=== PATIENT | male | born 1955 | race Caucasian/White ===

== ENCOUNTER 2020-03-28 07:11 | Observation (INO) | payer OTHER, SELFPAY ==
[2020-03-28] VITALS (17 sets, daily range): BP systolic 136–207; BP diastolic 84–119; PULSE 61–78; RESP 11–20; TEMP 36.4–36.7; O2SAT 94–99; BMI 22.1; BMI 22.8; BMI 22.2; BMI 22.3
[2020-03-28 07:25] LABS: Bedside Glucose 173 mg/dL (70-110)
--- NOTE | 2020-03-28 07:29 | EKG12_ITS ---
Test Reason : Blood Pressure : / mmHG Vent. Rate : 069 BPM Atrial Rate : 069 BPM P-R Int : 144 ms QRS Dur : 088 ms QT Int : 414 ms P-R-T Axes : 060 018 048 degrees QTc Int : 443 ms Normal sinus rhythm Normal ECG Confirmed by RAMIRO MENDIETA ([id number]), metropolitan editor VANNESSA RANGEL ([id number]) on 03/30/2020 11:27:03 AM Referred By: CAL Confirmed By:RAMIRO MENDIETA
--- NOTE | 2020-03-28 07:29 | CT_ITS ---
STUDY: CT BRAIN WITHOUT CONTRAST REASON FOR EXAM: Male, 64 years old. RT SIDED WEAKNESS, NUMBNESS TO RT LEG/HAND RADIATION DOSAGE (If Supplied By Facility): CTDIvol = ( 44.99 ) mGy, DLP = ( 762.36 ) mGycm TECHNIQUE: Transaxial CT imaging of the brain was performed without administration of intravenous contrast material. Individualized dose optimization techniques were used for this CT. COMPARISON: No relevant priors. FINDINGS: Normal soft tissue structures. Normal calvarium. There is mild cerebral atrophy with widening of the extra-axial spaces and ventricular dilatation. Normal white matter tracts of the cerebral hemispheres. Normal basal ganglia and thalami. Normal brainstem. Normal cerebellum. There is no intracranial hemorrhage. There are no findings of an acute ischemic infarction. Normal visualized paranasal sinuses. CT/Brain/Head without Contrast IMPRESSION: Normal unenhanced CT scan of the brain. Electronically Signed: Carmine Duran, at 8:13 EDT , Service support ,
--- NOTE | 2020-03-28 07:29 | RAD_ITS ---
STUDY: X-RAY CHEST REASON FOR EXAM: Male, 64 years old. WEAKNESS, RIGHT SIDE NUMBNESS X 1 DAY. TECHNIQUE: Single AP portable view of the chest. COMPARISON: None. FINDINGS: EKG electrodes are seen. There are minimal increased markings in the left midlung suggestive of linear atelectasis and/or scarring. There is no demonstrated pleural abnormality. Normal size heart. Normal mediastinum and sumit. Normal visualized pulmonary arteries. There is atherosclerotic tortuosity of the aortic arch and descending thoracic aorta. There are degenerative changes of the visualized thoracic spine. Normal visualized ribs, clavicles, and shoulders. There is no demonstrated abnormality of the visualized soft tissue structures of the upper abdomen. RAD/Chest 1 View IMPRESSION: Minimal increased linear markings in the left midlung suggestive of linear atelectasis and/or linear scarring. Electronically Signed: Carmine Duran, at 8:14 EDT , Service support ,
--- NOTE | 2020-03-28 07:29 | ED.VIS.GEN ---
History of Present Illness Chief Complaint: Neuro S/Sx Informant: Patient, Family Onset: Yesterday Narrative: 64-year-old male presenting with right-sided weakness. States that he woke up feeling fine at 6:30 AM yesterday. At about 830 he started to notice numbness in his right leg. He states that he did have difficulty ambulating secondary to weakness in the leg. This lasted all day. He did not seek medical attention. This morning when he woke up he noticed that he had right arm weakness and paresthesia. Has history of hypertension which is diet controlled. He states he has no other medical problems. He is never had TIA or stroke before. Patient does admit to recent travel to [place]. He does not have any COVID?19 symptoms such as cough, shortness of breath, fever, myalgias, loss of taste or smell. He called his PCP and was sent to the emergency room for evaluation. Past Medical History - Allergies and Home Meds Allergies/Adverse Reactions: Allergies No Known Allergies Allergy (Verified 03/28/20 07:19) Primary Care Physician: Fadi Monzon MD [STAFF PHYSICIAN] - Past Medical History: - - HYPERTENSION Lives: Spouse/ Significant Other Smoking Status: Never smoker Alcohol: None Drugs: None Review of Systems General: Denies: Chills, Fever, Sweats Eyes: Denies: Visual changes - bilaterally, Diplopia ENT: Denies: Rhinorrhea, Sore throat Cardiovascular: Denies: Chest pain, Palpitations Respiratory: Denies: Dyspnea, Cough, Dyspnea on exertion Gastrointestinal: Denies: Abdominal pain, Nausea, Vomiting, Diarrhea, Melena, Hematochezia Genitourinary: Denies: Dysuria, Hematuria, Frequency Musculoskeletal: Denies: Back pain, Extremity Pain Skin: Denies: Rash, Wounds Neurological: Reports: Weakness, Parasthesia, Numbness - Paresthesias and numbness in the right lower extremity and right upper extremity. Patient also notes that in the right side by his hip., - - No slurred speech, dizziness.. Denies: Headache Hematologic: Denies: Easy bruising, Easy bleeding Physical Exam Vital Signs/Narrative: Vital Signs Temp Pulse Resp BP Pulse Ox 03/28/20 07:12 97.6 F L 76 16 182/119 H 96 Inital Vital Signs reviewed: Yes General: Well nourished, Well developed, No Acute Distress Head: Normocephalic, Atraumatic Eyes: Perrl ENT: Moist mucous membranes, No rhinorrhea Cardiovascular: Regular rate, Regular rhythm Respiratory: No distress, CTA bilaterally Abdomen: Soft Extremities: Nontender, No edema Skin: Normal color, No rash Neurological: Alert, Oriented x3, Cranial nerves II-XII grossly intact, - - NIH = 3 for slight numbness in right arm and leg, slight drift right arm and right leg without hitting bed.. Negative for: Inattentive Psychological: Normal affect Diagnostic/Tx/Re-eval Clinical Impression(s) from Imaging Studies Brain CT 03/28/20 07:29 IMPRESSION: Normal unenhanced CT scan of the brain. Electronically Signed: Carmine Duran at 8:13 EDT , Service support , Chest X-Ray 03/28/20 07:29 IMPRESSION: Minimal increased linear markings in the left midlung suggestive of linear atelectasis and/or linear scarring. Electronically Signed: Carmine Duran, at 8:14 EDT , Service support , Brain MRI 03/28/20 08:49 IMPRESSION: Subacute infarct of the left thalamus. Electronically Signed: Angel Doll MD at 10:10 EDT Tel , Service support , ADDENDUM: 03/28/20 1024 IMPRESSION: Subacute infarct of the left thalamus. N.B. : The above information has been verbally conveyed by Angel Doll MD to SIMI ryan, on 03/28/2020 10:17:13 (ET). Electronically Signed: Angel Doll MD at 10:10 EDT Tel , Service support , Laboratory Data 03/28/20 03/28/20 03/28/20 07:19 07:20 07:20 WBC 5.8 RBC 5.53 Hgb 16.1 Hct 47.9 MCV 86.6 MCH 29.1 MCHC 33.6 RDW Std Deviation 42.7 RDW Coeff of Blaise 13.9 Plt Count 203 MPV 10.4 Immature Gran % (Auto) 0.200 Neut % (Auto) 68.9 Lymph % (Auto) 21.4 [place] % (Auto) 6.4 Eos % (Auto) 2.1 Baso % (Auto) 1.0 Absolute Neuts (auto) 4.0 Absolute Lymphs (auto) 1.23 Nucleated RBC % 0 PT 12.7 INR 1.0 APTT 25.5 Sodium Potassium Chloride Carbon Dioxide Anion Gap BUN Creatinine Estim Creat Clear Calc Est GFR (MDRD) Af Amer Est GFR (MDRD) Non-Af BUN/Creatinine Ratio Glucose Calcium Troponin I COVID-19 ([facility]) POC Glucose 173 H 03/28/20 03/28/20 07:20 07:40 WBC RBC Hgb Hct MCV MCH MCHC RDW Std Deviation RDW Coeff of Blaise Plt Count MPV Immature Gran % (Auto) Neut % (Auto) Lymph % (Auto) [place] % (Auto) Eos % (Auto) Baso % (Auto) Absolute Neuts (auto) Absolute Lymphs (auto) Nucleated RBC % PT INR APTT Sodium 137 Potassium 3.7 Chloride 105 Carbon Dioxide 28.0 Anion Gap 4 L BUN 16 Creatinine 1.57 H Estim Creat Clear Calc 47.82 Est GFR (MDRD) Af Amer 58 L Est GFR (MDRD) Non-Af 48 L BUN/Creatinine Ratio 10.2 Glucose 174 H Calcium 8.9 Troponin I < 0.015 COVID-19 ([facility]) Negative POC Glucose - Rhythm Strip Rhythm Strip: Sinus Rhythm Rate: 69 - EKG Initial EKG Interpretation: Sinus Rhythm, No Acute Injury Pattern Prior: Unchanged - With exception of previous EKG was sinus bradycardia at 53 bpm. - Medical Decision Making Seen and evaluated on arrival for strokelike symptoms. His NIH was 3. Patient had CT brain which was negative. Patient's lab work was fairly unremarkable with exception of some renal disease of unknown etiology. States he has uncontrolled hypertension and tries to control this with his diet this is possibly a source. His blood pressure was slightly elevated today and I did give him 10 mg of hydralazine. EKG is normal sinus rhythm without signs of ischemia. Chest x-ray is negative. COVID?19 swab is negative. Discussed with hospitalist who recommended getting MRI from the emergency room which showed a left thalamic infarct. At this point he was amenable to admit the patient for further work-up. Patient was given bedside swallow and aspirin in the ED. Impression: 1. Left thalamic infarct 2. Possible acute kidney injury ED Disposition - Plan for ED Patient: Referrals: Fadi Monzon MD [STAFF PHYSICIAN] -
[2020-03-28 07:38] LABS: Absolute Lymphocyte Count 1.23 X10^3/uL (0.83-4.51); Basophil# 0.06 X10^3/uL; Eosinophil# 0.12 X10^3/uL; Eosinophils% 2.1 % (0-5); Hematocrit 47.9 % (40-54); Hemoglobin 16.1 g/dL (13.0-16.5); Lymphocyte # 1.23 X10^3/ul (4.0); Lymphocyte % 21.4 % (19-41); Mean Corp Hgb Conc 33.6 g/dL (32-36); Mean Corpuscular Hgb 29.1 pg (27.0-32.0); Mean Corpuscular Volume 86.6 fL (80-94); Mean Platelet Vol. 10.4 fl (6.2-12.0); Monocyte# 0.37 X10^3/uL; Monocyte% 6.4 % (0-10); NRBC Flagged by Analyzer 0 % (0-5); Neutrophil # 3.96 X10^3/uL (2.7-7.7); Neutrophil % 68.9 % (47-70); Platelet Count 203 K/mm3 (150-450); RBC Distribution Width CV 13.9 % (11.6-14.6); RBC Distribution Width SD 42.7 fl (35.1-43.9); Red Blood Count 5.53 M/mm3 (4.6-6.2); White Blood Count 5.8 K/mm3 (4.4-11.0)
[2020-03-28 07:42] LABS: Partial Thromboplast Time 25.5 Seconds (24.1-36.2); Prothrombin Time (Protime)PT. 12.7 SECONDS (11.7-14.9)
[2020-03-28 07:57] LABS: Anion Gap 4 (5-15); BUN 16 mg/dL (7-18); BUN/Creat Ratio 10.2 RATIO (10-20); Calcium,Total 8.9 mg/dL (8.5-10.1); Chloride 105 mmol/L (98-107); Creatinine, Serum 1.57 mg/dL (0.70-1.30); EST Glomerular Filtration Rate 48 mL/min (>60); Est Glom Filt Rate - Afr Amer 58 mL/min (>60); Estimated Creatinine Clearance 47.82 ml/min; Glucose 174 mg/dL (74-106); Potassium 3.7 mmol/L (3.5-5.1); Sodium Level 137 mmol/L (136-145)
[2020-03-28] MEDS: hydrALAZINE 20 MG/ML Vial 10 MG IV (08:13)
[2020-03-28] MEDS: Aspirin 81 MG TAB.CHEW 324 MG PO (08:36)
--- NOTE | 2020-03-28 08:49 | MRI_ITS ---
We are attempting to reach an attending provider to discuss findings. An addendum with communication details will be sent when the communication is complete. STUDY: MRI BRAIN WITHOUT CONTRAST REASON FOR EXAM: Male, 64 years old. RIGHT weakness began yesterday when waking TECHNIQUE: Standardized multiplanar fat and water weighted pulse sequences were obtained. COMPARISON: CT 03-28-20 FINDINGS: Normal size of the ventricles and extra-axial spaces for the patient''s age. Normal white matter tracts of the supratentorial brain. There is hyperintensity of the left thalamus which demonstrates restricted diffusion consistent with a subacute infarct. Normal T2* images of the brain without demonstrated susceptibility artifact. There is no demonstrated hemosiderin stain. Normal bilateral basal ganglia. Normal thalami. There is no extra-axial fluid accumulation. Normal flow voids within the major intracranial circulation suggesting patency by spin echo criteria. Normal sella turcica, pituitary gland, infundibular stalk, optic chiasm and hypothalamus. Normal tectal plate and pineal gland. Normal midbrain, eddie and medulla. Normal cerebellum. Normal basal cisterns. Normal bilateral temporal bones. Normal bilateral internal auditory canals. No demonstrated orbital abnormality, within the constraints of a routine brain study. Normal visualized paranasal sinuses. Normal calvarium and skull base. Normal visualized soft tissue structures. Normal visualized upper cervical spine. MRI/Brain without Contrast IMPRESSION: Subacute infarct of the left thalamus. Electronically Signed: Angel Doll MD at 10:10 EDT Tel , Service support ,
[2020-03-28 08:55] LABS: Probe Check PASS; Specimen Processing Control PASS
--- NOTE | 2020-03-28 12:29 | CT_ITS ---
STUDY: CTA HEAD AND NECK WITH CONTRAST REASON FOR EXAM: Male, 64 years old. NEURO DEFICIT, ACUTE, STROKE SUSPECTED. RIGHT SIDE WEAK, RIGHT SIDE NUMBNESS. RADIATION DOSAGE (If Supplied By Facility): CTDIvol = ( 18.98 ) mGy, DLP = ( 653.12 ) mGycm TECHNIQUE: CT angiography was performed with a multi-detector CT scanner. Data acquisition was obtained from the skull base through the vertex following intravenous administration of IV 100mL [id number]-370. MIP images were reconstructed from the axial data set. Post-processing of the angiographic images was performed, with multiplanar reformation and 3D reconstruction. Individualized dose optimization techniques were used for this CT. COMPARISON: No relevant priors. FINDINGS: Normal bilateral petrous carotid arteries. Normal right cavernous carotid artery with a normal supraclinoid bifurcation. Normal left cavernous carotid artery with a normal supraclinoid bifurcation. Normal right A1 segments of the anterior cerebral artery. Normal left A1 segments of the anterior cerebral artery. Normal intact anterior communicating artery (ACOM). Normal bilateral A2 segments of the anterior cerebral arteries. Normal right M1 and M2 segments of the middle cerebral arteries, with a normal M1 bifurcation. Normal left M1 and M2 segments of the middle cerebral arteries, with a normal M1 bifurcation. Normal right posterior communicating artery (PCOM). Normal left posterior communicating artery (PCOM). Normal bilateral vertebral arteries. Normal basilar artery with a normal basilar bifurcation. The visualized bilateral superior cerebellar (SCA) arteries are normal. Normal bilateral P1, P2 and visualized P3 segments of the posterior cerebral arteries. There is no demonstrated aneurysm of the little traverse of Ceron. There is no demonstrated abnormality of the visualized brain. AORTIC ARCH: Normal visualized aortic arch. Normal origins of the brachiocephalic, left common carotid, and left subclavian arteries. RIGHT CAROTID ARTERIES: Normal right common carotid artery (CCA). Normal right common carotid bulb. Normal origin of the right internal carotid (ICA) artery without a hemodynamically significant stenosis. Normal visualized cervical portion of the right internal carotid artery. Normal origin of the right external carotid artery (ECA). LEFT CAROTID ARTERIES: Normal left common carotid artery (CCA). Normal left common carotid bulb. There is mild atherosclerotic plaque formation of the origin of the left internal carotid artery with less than 50% cross sectional diameter stenosis. Normal visualized cervical portion of the left internal carotid artery. Normal origin of the left external carotid artery (ECA). VERTEBRAL ARTERIES: Normal bilateral vertebral arteries. CT/CTA Head AND Neck W/ Contrast IMPRESSION: Minimal plaque at the origin of the left internal carotid artery. Electronically Signed: Carmine Duran, at 14:06 EDT , Service support ,
--- NOTE | 2020-03-28 12:29 | ECHOD_ITS ---
Reason For Study: TIA/CVA Procedure This was a 2D Doppler, Color Flow transthoracic echocardiogram. Exam performed portable in patient room. Left Ventricle Normal LV size. Apical false tendon noted. Left ventricular systolic function is normal. The estimated ejection fraction is 65 %. No evidence for diastolic dysfunction. No regional wall motion abnormalities noted. Right Ventricle Normal RV size. Normal systolic function. Atria Normal left atrium. Normal right atrium. No doppler evidence for ASD. Bubble contrast study negative for right to left interatrial shunt. Mitral Valve There is no mitral annular calcification. Normal mitral valve. Trivial mitral valve insufficiency. Tricuspid Valve Normal tricuspid valve. Trivial tricuspid valve insufficiency. Aortic Valve Trisinus/trileaflet aortic valve. Normal aortic valve. Pulmonic Valve The pulmonic valve is not well visualized. Trivial pulmonic valve insufficiency. Great Vessels Normal sized aortic root. Pericardium/Pleural No pericardial effusion. Medication Performed a rapid injection of agitated mix of 9 cc saline and 1cc air to assess for atrial septal defect. MMode/2D Measurements & Calculations LVIDd: 4.5 cm IVSd: 1.0 cm Ao root diam: 3.2 cm LVIDs: 3.0 cm LVPWd: 0.96 cm RVDd: 3.4 cm FS: 34.2 % LAV(MOD-bp): 42.5 ml LVAd ap4: 26.5 cm2 SV(MOD-sp4): 43.8 ml LAV(MOD-bp) Indexed: 23.2 ml/m2 EDV(MOD-sp4): 73.1 ml LAV(MOD-sp2): 42.1 ml EDV(sp4-el): 73.0 ml LAV(MOD-sp4): 40.6 ml LVAs ap4: 14.3 cm2 ESV(MOD-sp4): 29.3 ml ESV(sp4-el): 28.3 ml EF(MOD-sp4): 59.9 % EF(sp4-el): 61.2 % SV(sp4-el): 44.7 ml LA A4 area: 15.9 cm2 LA dimension(2D): 3.9 cm RA A4 area: 16.9 cm2 Doppler Measurements & Calculations MV E max rafa: 84.8 cm/sec Lat Peak E' Rafa: 13.5 cm/sec Med Peak E' Rafa: 10.5 cm/sec MV A max rafa: 73.4 cm/sec E/E' lat: 6.3 E/E' med: 8.1 MV E/A: 1.2 Ao V2 max: 176.5 cm/sec LV V1 max: 126.3 cm/sec PA V2 max: 136.0 cm/sec Ao max P.5 mmHg LV V1 max P.4 mmHg Interpretation Summary Left ventricular systolic function is normal. The estimated ejection fraction is 65 %. Apical false tendon noted. Trivial mitral valve insufficiency. Trivial tricuspid valve insufficiency. Trivial pulmonic valve insufficiency. No evidence for diastolic dysfunction. Bubble contrast study negative for right to left interatrial shunt. Ordering Physician: Robi Hpoper Performed By: Ness Sim RDCS
[2020-03-28] MEDS: Clopidogrel Bisulfate 75 MG Tablet PO (14:09)
--- NOTE | 2020-03-28 15:10 | CASEMGMT ---
SW completed a PHQ 9 with patient as he had a Stroke. He scored a 0 which indicates no depression. Ree THORNTON MSW
--- NOTE | 2020-03-28 16:34 | PCM.HP.STD ---
Problem List (1) Paresthesia of right leg Status: Acute (2) Right-sided paresthesia Status: Acute History of Present Illness Date of Admission: 03/28/20 Chief Complaint: Right leg paresthesia, right side paresthesia The patient is a 64 year old M was seen in the emergency room at [facility] with a chief complaint of numbness/decreased sensation in his right leg and on the right side of his body near his right axillary area. Patient denied any speech difficulties, he denied any visual disturbances, he denied any actual weakness of the upper or lower extremities. Work-up in the emergency room included a CT of the brain which was negative for acute pathology, CBC was unremarkable, chemistry profile was remarkable for creatinine 1.57 and a glucose of 174. Patient had a COVID test performed which was negative. Patient's NIH score was 3. An MRI of the brain was ordered which showed a subacute left thalamic infarct. Patient was placed in observation status on PCU, he will be placed on a statin and aspirin and Plavix. He will have an echocardiogram performed and be seen by PT and OT, I do not believe the patient needs to be seen by speech. A CTA of the neck and head will also be performed. Past Medical History Allergies No Known Allergies Allergy (Verified 03/28/20 07:19) Home Medications: Ambulatory Orders Medication Instructions Recorded NK 03/28/20 Surgical History: TURP, - - Lithotripsy due to kidney stones Psychiatric History: No pertinent psych hx Lives: Spouse/ Significant Other Smoking Status: Never smoker Tobacco Use: Non-smoker Alcohol: None Drugs: None - *Family History Maternal History Items: Heart Disease Paternal History Items: Heart Disease Review of Systems Constitutional: Denies: Anorexia, Chills, Fever, Night Sweats, Malaise, Weakness, Weight Change Eyes: Denies: Cataracts, Conjunctivae Inflammation, Double vision, Drainage HEENT: Denies: Dysphasia, Ear Pain, Eye Pain, Hearing Changes, Nasal bleeding, Nasal Congestion Cardiovascular: Denies: Chest Pain, Claudication, Chest Pressure, Chest Tightness, Edema, Heaviness, Palpitations Respiratory: Denies: Cough, Hemoptysis, Pleuritic Pain, Shortness of Breath, Shortness of breath at rest, Shortness of breath upon exertion Gastrointestinal: Denies: Abdominal Pain, Constipation, Diarrhea, Hematemesis, Hematochezia, Nausea, Melena, Vomiting Genitourinary: Denies: Dysuria, Frequency, Hematuria, Hesitancy, Urgency Musculoskeletal: Denies: Back Pain, Foot Pain, Hand Pain, Joint Pain, Joint stiffness, Joint swelling, Joint Tenderness, Leg Pain Skin: Denies: Dryness, Jaundice, Pruritis, Rash Neurological: Reports: Numbness - Decreased sensation in the right leg and right lateral trunk area. Denies: Blurred vision, Double vision, Change in Speech, Slurred speech, Difficulty swallowing, Focal weakness, Headaches, Incoordination, Tingling Psychiatric: Denies: Anxiety, Depression, Homicidal Ideations, Suicidal Ideations Endocrine: Denies: Change in Body Habitus, Heat/ Cold Intolerance, Polydipsia, Polyuria Hematologic/ Lymphatic: Denies: Adenopathy, Anemia, Easy Bruising, Easy Bleeding, Petechiae, Purpura VTE Information - Inpt Only VTE Present on Admission: No VTE Mechan Device Prophylaxis: None VTE Pharm Prophylaxis ordered?: No Reason prophylaxis not ordered:: Treatment Not Indicated Patient Problems: Active and Suspected Problems Paresthesia of right leg (Acute) Right-sided paresthesia (Acute) - Physical Exam Vitals/I&O's: Vital Signs Temp Pulse Resp BP Pulse Ox 97.9 F 69 16 181/94 H 96 03/28/20 16:08 03/28/20 16:08 03/28/20 16:08 03/28/20 16:08 03/28/20 16:08 Oxygen Flow Rate (L/min) 1 Oxygen Delivery Method Room Air Weight: 68.4 kg Body Mass Index (BMI) 22.2 Finger Stick Blood Glucose 173 Intake and Output for Last 24 Hours 03/26/20 03/27/20 03/28/20 23:59 23:59 23:59 Intake Total 500 / 500 Balance 500 / 500 General: Alert, Oriented x3, Cooperative HEENT: Atraumatic, PERRLA, EOMI, Normocephalic Oral: Moist Mucosa Neck: Supple, No JVD, Negative Carotid Bruits, Trachea Midline, Thyroid Normal Size and Texture Lungs: Clear to auscultation, Normal air movement, No rhonchi, No wheeze, No rales Cardiovascular: Regular rate, Regular Rhythm, Normal S1, Normal S2, No murmurs, PMI Normal, No rub noted, No Gallop Abdomen: Bowel Sounds Present, Soft, Non Tender, Non-Distended, No hernias noted Extremities: No clubbing, No cyanosis, No edema, Capillary Refill Less than 3 Seconds Skin: No rashes, No breakdown Musculoskeletal: No Tenderness to Palpation of Joints or Extremities Neurological: Cranial nerves II-XII grossly intact, Neuro grossly intact, Motor Exam 5/5 strength throughout, Muscle tone normal, Coordination normal Psych/Mental Status: Normal Affect, Appropriate, Alert and oriented to time, place, person, mood and affect Laboratory Results 03/28/20 07:19: POC Glucose 173 H 03/28/20 07:20: WBC 5.8, RBC 5.53, Hgb 16.1, Hct 47.9, MCV 86.6, MCH 29.1, MCHC 33.6, RDW Std Deviation 42.7, RDW Coeff of Blaise 13.9, Plt Count 203, MPV 10.4, Immature Gran % (Auto) 0.200, Neut % (Auto) 68.9, Lymph % (Auto) 21.4, [place] % (Auto) 6.4, Eos % (Auto) 2.1, Baso % (Auto) 1.0, Absolute Neuts (auto) 4.0, Absolute Lymphs (auto) 1.23, Nucleated RBC % 0 03/28/20 07:20: PT 12.7, INR 1.0, APTT 25.5 03/28/20 07:20: Sodium 137, Potassium 3.7, Chloride 105, Carbon Dioxide 28.0, Anion Gap 4 L, BUN 16, Creatinine 1.57 H, Estim Creat Clear Calc 47.82, Est GFR (MDRD) Af Amer 58 L, Est GFR (MDRD) Non-Af 48 L, BUN/Creatinine Ratio 10.2, Glucose 174 H, Calcium 8.9, Troponin I < 0.015 03/28/20 07:40: COVID-19 ([facility]) Negative Current Medications Aspirin (Aspirin, Baby) 81 mg PO DAILY@0800 SOL[place] Atorvastatin Calcium (Lipitor) 80 mg PO QHS [facility] Clopidogrel Bisulfate (Plavix) 75 mg PO DAILY [facility] Last Admin: 03/28/20 14:09 Dose: 75 mg Documented by: Hydralazine HCl (Apresoline Iv) 5 mg IV Q30M PRN PRN Reason: to maintain BP goals Sodium Chloride () 500 mls @ 999 mls/hr IV .Q31M ONE Last Infusion: 03/28/20 08:16 Dose: Infused Documented by: Sodium Chloride () 250 mls @ 15 mls/hr IV .[id number] PRN PRN Reason: Saline Flush Labetalol HCl (Trandate) 10 - 20 mg IV Q10M PRN PRN PRN Reason: to maintain BP goals Sodium Chloride () 10 - 40 ml IV UD PRN PRN Reason: SALINE FLUSH Assessment/Plan All Active Problems Paresthesia of right leg (Acute) Right-sided paresthesia (Acute) #1 ischemic stroke left thalamic area-again patient will be seen by PT and OT, a statin and Plavix and aspirin was ordered, echocardiogram was ordered and is pending. Patient will have a CTA of the head and neck performed. #2 hyperglycemia-I will obtain a hemoglobin A1c on the patient, fasting blood sugar will be checked in the morning #3 chronic kidney disease stage III-patient states he was told he has chronic kidney disease from past history of kidney stones with obstruction. OBSV E&M: [id number] Initial observation care L3
[2020-03-28 17:50] LABS: Bedside Glucose 143 mg/dL (70-110)
[2020-03-28] MEDS: Atorvastatin Calcium 80 MG Tablet PO (21:15)
[2020-03-29 02:59] VITALS: PULSE 54
[2020-03-29 03:30] VITALS: BP 144/84; PULSE 85; RESP 16; TEMP 36.4; O2SAT 95
[2020-03-29 06:10] VITALS: BP 125/85; PULSE 78; RESP 16; TEMP 36.4; O2SAT 96
[2020-03-29 06:33] LABS: Cholesterol 288 mg/dL (200); High Density Lipoprotein 48 mg/dL; Triglycerides 120 mg/dL; Very Low Density Lipoprotein 24 mg/dL (5-40)
[2020-03-29 07:14] VITALS: PULSE 77
[2020-03-29] MEDS: Aspirin 81 MG TAB.CHEW PO (08:59)
[2020-03-29] MEDS: Clopidogrel Bisulfate 75 MG Tablet PO (08:59)
[2020-03-29 09:11] LABS: Bedside Glucose 167 mg/dL (70-110)
[2020-03-29 10:10] VITALS: BP 162/85; PULSE 62; RESP 16; TEMP 36.4; O2SAT 98
[2020-03-29 10:33] VITALS: BMI 22.2
--- NOTE | 2020-03-29 11:36 | CASEMGMT ---
Therapy recommends that pt have OP PT/OT at discharge. This RN CM to room to discuss with pt/ and they would like referral for OP therapy to [facility] at this time. Referral faxed to [facility] at this time. Original order to pt and copy to chart at this time. Pt/ voice no further questions/concerns/needs at this time. [place] [facility]
--- NOTE | 2020-03-29 12:10 | DCINST_ITS ---
- Discharge Diagnoses Current Active Problems: Current Active and Chronic Problems Paresthesia of right leg (Acute) Right-sided paresthesia (Acute) You will use the following diet at home:: Other - NO ADDED SUGAR DIET Your food should be the consistency of: Regular Your liquids should be the consistency of: Regular/Thin Discharge Activity: Return to Normal Activity Weight Bearing Status: Weight bearing as tolerated Additional Instructions: AVOID ALLEVE AND iBUPROFEN Allergies/Adverse Reactions: Allergies No Known Allergies Allergy (Verified 03/28/20 07:19) Medications to take at Discharge Amlodipine Besylate [Norvasc] 5 mg PO DAILY #30 tab 03/29/20 Aspirin [Aspirin, Baby] 81 mg PO DAILY@0800 tab.chew 03/29/20 Atorvastatin Calcium [Lipitor] 80 mg PO QHS #30 tab 03/29/20 Clopidogrel Bisulfate [Plavix] 75 mg PO DAILY #30 tab 03/29/20 The following prescriptions were given: Atorvastatin Calcium [Lipitor] 80 mg PO QHS #30 tab Transmission Status: Pending to [facility] Amlodipine Besylate [Norvasc] 5 mg PO DAILY #30 tab Transmission Status: Pending to [facility] 181 Clopidogrel Bisulfate [Plavix] 75 mg PO DAILY #30 tab Transmission Status: Pending to [facility] 1812 Primary Care Physician: Fadi Monzon MD [STAFF PHYSICIAN] - Test Results: Test results from this visit will be discussed in further detail at your follow- up appointment, if applicable. Please Follow Up With: Cassandra Anand MD When: WITHIN 2-3 WEEKS
[2020-03-29 12:26] LABS: Bedside Glucose 68 mg/dL (70-110)
--- NOTE | 2020-03-29 12:56 | PHA.DC.MC ---
Pharmacy Service has performed discharge medication reconciliation and counseling for this patient. 1. ASPIRIN 81MG PO DAILYCM 2. ATORVASTATIN 40MG PO QHS 3. AMLODIPINE 5MG PO DAILY 4. CLOPIDOGREL 75MG PO DAILY The patient's discharge medication list was reviewed for discrepancies and discrepancies were resolved. Home Medications Amlodipine Besylate [Norvasc] 5 mg PO DAILY #30 tab 03/29/20 Aspirin [Aspirin, Baby] 81 mg PO DAILY@0800 tab.chew 03/29/20 Atorvastatin Calcium [Lipitor] 80 mg PO QHS #30 tab 03/29/20 Clopidogrel Bisulfate [Plavix] 75 mg PO DAILY #30 tab 03/29/20 The patient was counseled on the following discharge medications and changes in medications for homegoing were reviewed. The Reason for Use, instructions for use, and potential side effects were reviewed for all new medications. The patient's questions regarding all of their medications were answered. The patient was able to verbally demonstrate an understanding of their discharge medications. Patient counseled by pharmacy general managerRitchie.
--- NOTE | 2020-03-31 08:18 | PCM.DC.SUM ---
Discharge Date and Diagnosis Date of Admission: 03/28/20 Date of Discharge: 03/29/20 - Primary Discharge Diagnosis Acute Problems: #1 ischemic stroke left thalamic area #2 Prediabetes #3 chronic kidney disease stage III #4 hyperlipidemia #5 essential hypertension Hospital Course and Treatment Operations: None Procedures: 2-D Echocardiogram Summary of Care Provided: The patient is a 64 year old M who presented to the emergency room at [facility] with a chief complaint of numbness in his right leg and his right lateral trunk area, patient denied any visual disturbances or speech disturbances. Work-up in the emergency room included a CAT scan of the brain which showed no abnormality, chemistry profile was remarkable for creatinine of 1.57 and glucose of 174. Patient's NIH score was 3, an MRI of the brain was able to be ordered while the patient was in the emergency room, this MRI showed a subacute left thalamic infarct, patient was placed in observation status on PCU, he was seen by PT and OT and he had a CTA of the head and neck which was negative for any abnormality. It was noted that the patient's blood pressure was elevated and upon asking the patient concerning his medical history he had admitted in the past he had elevated blood pressure but his physician wanted to watch this and not treated with medication. Patient's blood sugar also ran a little high during his hospitalization, A1c was 6 and I felt the patient had prediabetes. On examination he appeared in good health and spirits. Vital signs as documented. Skin warm and dry and without overt rashes. Neck without JVD, neck was supple, trachea midline, thyroid was normal. Lungs clear bilaterally, normal air movement was noted. Heart exam notable for regular rhythm, normal sounds and absence of murmurs, rubs or gallops. Abdomen unremarkable and without evidence of organomegaly, masses, or abdominal aortic enlargement. Bowel sounds are present, abdomen is not distended. Extremities nonedematous, no cyanosis was noted, no clubbing was noted. Neuro: Cranial nerves II through XII are grossly intact, no focal motor deficits were noted, sensation to light touch and pinprick was diminished in his right leg and right lateral trunk area., Motor exam 5/5 throughout. Psych: Patient is alert and oriented x3, he does not appear anxious or depressed, he does not appear agitated. On 03/29/2020, patient was seen and examined and felt to be in stable condition for discharge home, I recommended that he follow-up with his physician concerning his elevated blood sugars and avoid any concentrated sweets. Patient was placed on hypertensive medication, statin, Plavix, and aspirin at the time of discharge. - Physical Exam Vitals/I&O's: Vital Signs Temp Pulse Resp BP Pulse Ox 97.6 F L 62 16 162/85 H 98 03/29/20 10:10 03/29/20 10:10 03/29/20 10:10 03/29/20 10:10 03/29/20 10:10 Oxygen Flow Rate (L/min) 1 Oxygen Delivery Method Room Air Weight: 68.4 kg Body Mass Index (BMI) 22.2 Finger Stick Blood Glucose 173 Intake and Output for Last 24 Hours 03/29/20 03/30/20 03/31/20 23:59 23:59 23:59 Intake Total 620 / 620 Balance 620 / 620 Discharge Activity: Return to Normal Activity Weight Bearing Status: Weight bearing as tolerated Home Medications: Medications to take at Discharge Amlodipine Besylate [Norvasc] 5 mg PO DAILY #30 tab 03/29/20 Aspirin [Aspirin, Baby] 81 mg PO DAILY@0800 tab.chew 03/29/20 Atorvastatin Calcium [Lipitor] 80 mg PO QHS #30 tab 03/29/20 Clopidogrel Bisulfate [Plavix] 75 mg PO DAILY #30 tab 03/29/20 Following Prescriptions Were Given to Patient: Atorvastatin Calcium [Lipitor] 80 mg PO QHS #30 tab Transmission Status: Received by [facility] [id number] Amlodipine Besylate [Norvasc] 5 mg PO DAILY #30 tab Transmission Status: Received by [id number] Clopidogrel Bisulfate [Plavix] 75 mg PO DAILY #30 tab Transmission Status: Received by [id number] Primary Care Physician: Fadi Monzon MD [STAFF PHYSICIAN] - Please Follow Up With: Cassandra Anand MD When: WITHIN 2-3 WEEKS Disposition: Home Minutes spent on discharge:: 31 Patient Condition:: Stable Medical Necessity - Tobacco Use Smoking Status: Never smoker Tobacco Use: Non-smoker Meaningful Use Info Meaningful Use Diagnoses (Choose all that apply): Ischemic CVA - CVA Therapy Assessed for PT,OT and/or ST?: Yes - Ischemic Stroke Antithrombotic order at d/c?: Yes Dx of Atrial fib/flutter?: No Anticoagulant at discharge?: No Reason anticoagulant not ordered: Treatment not Indicated Statins at discharge?: Yes Primary Dx Acute Ischemic CVA?: Yes IV tPA ordered during stay?: No Reason IV t-PA not ordered: Treatment not Indicated OBSV E&M: 31845 Observation care discharge
== END 2020-03-29 12:12 | disposition home or self-care (01) ==
LOC: ED 08:06 → PCU 12:56
PROVIDERS: Admitting Provider Internal Medicine; Emergency Provider Student in an Organized Health Care Education/Training Program; Visit Provider Internal Medicine
DX: I63.9 Cerebral infarction, unspecified (principal); R73.03 Prediabetes; N18.3 Chronic kidney disease, stage 3 (moderate); I12.9 Hypertensive chronic kidney disease with stage 1 through stage 4 chronic kidney disease, or unspecified chronic kidney disease; E78.5 Hyperlipidemia, unspecified; R29.703 NIHSS score 3; R00.1 Bradycardia, unspecified; I08.1 Rheumatic disorders of both mitral and tricuspid valves
CPT/HCPCS: 36415; 70450; 70496; 70498; 70551; 71045; 80048; 80061; 82962; 83036; 84484; 85025; 85610; 85730; 87635; 93005; 93306; 94799; 96374; 97162; 97166; 97530; 99218; 99285; J7040; Q9957; Q9967; A4216; G0378; U0003

== ENCOUNTER 2020-04-03 13:53 | Outpatient (RCR) | payer OTHER, SELFPAY ==
--- NOTE | 2020-04-03 15:03 | HP.PTEVAL ---
Patient's Visit Information MICKIE SKINNER is a 64 year old M referred to Physical Therapy by Dr. Robi Hopper DO with a diagnosis of SUBACUTE INFARCT OF THE LEFT THALAMUS. Date of Evaluation: 04/03/20 Physical Therapist: Elisa Bowling, PT, Cert MDT - Visit Plan Frequency: 1 Duration: 1 Plan: EVAL ONLY. THIS PATIENT DOES NOT DEMONSTRATE A NEED FOR SKILLED PT AT THIS TIME. PATIENT IS MODIFIED INDEP WITH ADL'S AND FUNCTIONAL MOBILITY WITH A SENSATION DEFICIT ON THE RIGHT. AND IT IS HIS WISH NOT TO ATTEND THERAPY SERVICES. - Subjective Work/Leisure: RETIRED. [employer], [employer] (ABOUT 3 DAYS A WEEK IN [place]AS[place]). Disability: NO. Present symptoms: PATIENT REPORTS HE HAD A STROKE LAST WEEK FOR NO APPARENT REASON. ONE OVER-NIGHT STAY AT THE HOSPITAL. PATIENT REPORTS HIS WHOLE RIGHT SIDE AND LEG HAS BEEN NUMB AND HIS RIGHT UE IS A LITTLE BIT NUMB. PATIENT REPORTS MAINLY JUST HAVING NUMBNESS IN THE RIGHT LE AND NOT NECCESARILY WEAKNESS OR TIGHTNESS. HE FEELS HIS RIGHT LEG IS WORKING PRETTY MUCH NORMAL BUT MAYBE NOT GOOD OF BALANCE. HAS NOT BEEN USING ANY ASSISTIVE DEVICES. LIVES IN 2 STORY HOME WITH WHOM IS IN GOOD HEALTH AND SHE IS RETIRED WELL. Present since: 03/27/20. Pain Scale: NO PAIN. Currently: N/A. Commenced as a result of: NO APPARENT REASON. Symptoms at onset: RIGHT LEG GOING NUMB. Previous history/Previous treatment: UNREMARKABLE. Treatment this episode: BLOOD THINNER, BLOOD PRESSURE MEDICINE, CHOLESTEROL MEDICINE. Gait: PATIENT REPORTS HE REALLY FEELS HIS WALKING IS PRETTY NORMAL OUTSIDE OF THE RIGHT LEG BEING NUMB. Difficulty initiating urinatin: NO. Accidents: NO. Unexplained weight loss: NO. Imaging: BRAIN MRI. PMH: UNREMARKABLE. Recent major surgery: UNREMARKABLE. PROSTRATE SX A YEAR AGO - NO CANCER. OTHER: PATIENT REPORTS HE IS BETWEEN PHYSICIANS (PCP'S) RIGHT NOW BECAUSE OF RECENT INSURANCE CHANGE JUST BEFORE STROKE. GOING TO SEE NEW PCP FRIDAY. - Objective THIS PATIENT AMBULATES INDEP'LY INTO PT WITHOUT ANY AD'S OR GROSS DEVIATIONS NOTED. KASSY LE ROM AND STRENGTH ARE WFL WITH TESTING. PATIENT FOLLOWS COMMANDS WELL AND COORDINATION IS WNL. HE IS ABLE TO TURN 360 DEG KASSY WITHOUT LOB. HE IS ABLE TO SLS ON EA LE X > 30 SEC WITHOUT UE ASSIST. EVEN ABLE TO DO 5 CHAIR SQUATS WITHOUT UE ASSIST. RIGHT LE LIGHT TOUCH SENSATION IS DECREASED COMPARED TO LEFT BUT THERE IS NO FOOT DROP OR OTHER MOTOR DEFICIT DETECTED. PATIENT IS EXPRESSING THAT HE DOES NOT WANT TO DO PT AND DOES NOT FEEL HE NEEDS PT. - Goals Goal 1:: SUCCESSFUL COMPLETION OF PT EVAL Goal Time Frame: 1 VISIT - Anticipated Interventions Thank you for the opportunity to evaluate your patient. For Medicare and Medicare HMO plans, please review the plan of care and approve it. It will need to be FAXED BACK to us at [phone] for Medicare purposes. For Medicare only, by signing this I certify the plan of care. Please let me know if there are questions or concerns regarding this plan of care. Physician Signature: Date:
--- NOTE | 2020-07-03 18:22 | HP.PTDCSUM ---
It has been my pleasure to treat MICKIE SKINNER referred by Dr. Robi Hopper DO, with the diagnosis of SUBACUTE INFARCT OF THE LEFT THALAMUS for a total of 1 visit(s). Discharge Date: Please see the following information for a summary of their discharge status. Goal 1:: SUCCESSFUL COMPLETION OF PT EVAL Plan: EVAL ONLY. THIS PATIENT DOES NOT DEMONSTRATE A NEED FOR SKILLED PT AT THIS TIME. PATIENT IS MODIFIED INDEP WITH ADL'S AND FUNCTIONAL MOBILITY WITH A SENSATION DEFICIT ON THE RIGHT. AND IT IS HIS WISH NOT TO ATTEND THERAPY SERVICES. If there are questions or concerns regarding this patient's physical therapy, please feel free to call me at [phone]. Thank you for the referral of this patient. Sincerely, Elisa Bowling, PT, Cert MDT
== END 2020-04-03 19:00 | disposition home or self-care (01) ==
LOC: PT 13:53
PROVIDERS: Referring Provider Internal Medicine; Visit Provider Internal Medicine
DX: Z86.73 Personal history of transient ischemic attack (TIA), and cerebral infarction without residual deficits (principal)
CPT/HCPCS: 97161

== ENCOUNTER → 2020-04-28 09:57 | Outpatient (CLI) | payer OTHER, SELFPAY ==
[2020-04-07 08:10] VITALS: BMI 22.7
[2020-04-28 12:46] LABS: ALB/GLOB Ratio 1.2 RATIO (0.9-2.4); AST(SGOT) 27 U/L (15-37); Alanine Aminotransfer ALT/SGPT 43 U/L (16-61); Albumin, Serum 3.9 g/dL (3.2-5.0); Alkaline Phosphatase 80 U/L (45-117); Anion Gap 7 (5-15); BUN 17 mg/dL (7-18); BUN/Creat Ratio 11.5 RATIO (10-20); Calcium,Total 8.9 mg/dL (8.5-10.1); Chloride 104 mmol/L (98-107); Creatinine, Serum 1.48 mg/dL (0.70-1.30); EST Glomerular Filtration Rate 51 mL/min (>60); Est Glom Filt Rate - Afr Amer 62 mL/min (>60); Globulin 3.3 g/dL (2.2-4.2); Glucose 89 mg/dL (74-106); Potassium 4.2 mmol/L (3.5-5.1); Protein, Total 7.2 g/dL (6.4-8.2); Sodium Level 137 mmol/L (136-145)
== END ==
PROVIDERS: PCP Internal Medicine; Referring Provider Internal Medicine; Visit Provider Internal Medicine
DX: I10 Essential (primary) hypertension (principal); E78.5 Hyperlipidemia, unspecified
CPT/HCPCS: 36415; 80053

== ENCOUNTER → 2020-06-21 08:54 | Outpatient (CLI) | payer OTHER, SELFPAY ==
[2020-06-20 10:20] VITALS: BMI 22.3
[2020-06-21 09:52] LABS: Hematocrit 46.9 % (40-54); Hemoglobin 15.1 g/dL (13.0-16.5); Mean Corp Hgb Conc 32.2 g/dL (32-36); Mean Corpuscular Hgb 28.9 pg (27.0-32.0); Mean Corpuscular Volume 89.8 fL (80-94); Mean Platelet Vol. 10.9 fl (6.2-12.0); Platelet Count 212 K/mm3 (150-450); RBC Distribution Width CV 13.6 % (11.6-14.6); RBC Distribution Width SD 44.2 fl (35.1-43.9); Red Blood Count 5.22 M/mm3 (4.6-6.2); White Blood Count 5.1 K/mm3 (4.4-11.0)
[2020-06-21 10:33] LABS: Vitamin B12 574 pg/mL (211-911)
[2020-06-21 10:46] LABS: AST(SGOT) 47 U/L (15-37); Alanine Aminotransfer ALT/SGPT 76 U/L (16-61); Albumin, Serum 3.8 g/dL (3.2-5.0); Alkaline Phosphatase 93 U/L (45-117); Anion Gap 5 (5-15); BUN 12 mg/dL (7-18); BUN/Creat Ratio 8.5 RATIO (10-20); CPK Total, Creatine Kinase 130 U/L (39-308); Calcium,Total 8.9 mg/dL (8.5-10.1); Chloride 104 mmol/L (98-107); Cholesterol 126 mg/dL (200); Creatinine, Serum 1.41 mg/dL (0.70-1.30); EST Glomerular Filtration Rate 54 mL/min (>60); Est Glom Filt Rate - Afr Amer 65 mL/min (>60); Globulin 3.7 g/dL (2.2-4.2); Glucose 92 mg/dL (74-106); High Density Lipoprotein 60 mg/dL; Potassium 4.2 mmol/L (3.5-5.1); Protein, Total 7.5 g/dL (6.4-8.2); Sodium Level 138 mmol/L (136-145); Thyroid Stim Hormone (TSH) 1.97 uIU/mL (0.358-3.74); Triglycerides 78 mg/dL; Very Low Density Lipoprotein 16 mg/dL (5-40)
[2020-06-22 09:00] LABS: Myoglobin, Serum 62 ng/mL (28-72)
== END ==
PROVIDERS: PCP Internal Medicine; Visit Provider Psychiatry & Neurology Neurology
DX: R53.83 Other fatigue (principal); E78.00 Pure hypercholesterolemia, unspecified; Z86.73 Personal history of transient ischemic attack (TIA), and cerebral infarction without residual deficits
CPT/HCPCS: 36415; 80053; 80061; 82550; 82607; 83874; 84443; 85027

== ENCOUNTER → 2020-07-24 07:51 | Outpatient (CLI) | payer OTHER, SELFPAY ==
[2020-07-07 10:14] VITALS: BMI 22.7
[2020-07-24 08:52] LABS: AST(SGOT) 33 U/L (15-37); Alanine Aminotransfer ALT/SGPT 56 U/L (16-61); Albumin, Serum 3.9 g/dL (3.2-5.0); Alkaline Phosphatase 81 U/L (45-117); Bilirubin, Direct 0.18 mg/dL (0.00-0.30); Globulin 3.4 g/dL (2.2-4.2); Protein, Total 7.3 g/dL (6.4-8.2)
== END ==
PROVIDERS: PCP Internal Medicine; Referring Provider Psychiatry & Neurology Neurology; Visit Provider Psychiatry & Neurology Neurology
DX: E78.00 Pure hypercholesterolemia, unspecified (principal)
CPT/HCPCS: 36415; 80076

== ENCOUNTER → 2020-09-21 08:25 | Outpatient (CLI) | payer OTHER, SELFPAY ==
[2020-09-21 08:25] VITALS: BMI 22.3
[2020-09-21 10:44] LABS: Cholesterol 149 mg/dL (200); High Density Lipoprotein 54 mg/dL; Triglycerides 78 mg/dL; Very Low Density Lipoprotein 16 mg/dL (5-40)
== END ==
PROVIDERS: PCP Internal Medicine; Referring Provider Nurse Practitioner Family; Visit Provider Nurse Practitioner Family
DX: E78.5 Hyperlipidemia, unspecified (principal); Z86.73 Personal history of transient ischemic attack (TIA), and cerebral infarction without residual deficits
CPT/HCPCS: 36415; 80061

== ENCOUNTER → 2021-04-23 08:29 | Outpatient (CLI) | payer OTHER, SELFPAY ==
[2021-04-23 12:03] LABS: Absolute Lymphocyte Count 0.85 X10^3/uL (0.83-4.51); Absolute Neutrophil Count 3.1 X10^3/uL (2.0-7.7); Basophil# 0.05 X10^3/uL; Basophil% 1.1 % (0-1); Eosinophils% 2.2 % (0-5); Hematocrit 46.6 % (40-54); Hemoglobin 15.1 g/dL (13.0-16.5); Lymphocyte # 0.85 X10^3/ul (0.83-4.51); Mean Corp Hgb Conc 32.4 g/dL (32-36); Mean Corpuscular Hgb 28.6 pg (27.0-32.0); Mean Corpuscular Volume 88.3 fL (80-94); Mean Platelet Vol. 11.4 fl (6.2-12.0); Monocyte# 0.34 X10^3/uL; Monocyte% 7.6 % (0-10); NRBC Flagged by Analyzer 0 % (0-5); Neutrophil # 3.14 X10^3/uL (2.7-7.7); Neutrophil % 70.1 % (47-70); Platelet Count 199 K/mm3 (150-450); RBC Distribution Width CV 13.4 % (11.6-14.6); RBC Distribution Width SD 43.6 fl (35.1-43.9); Red Blood Count 5.28 M/mm3 (4.6-6.2); White Blood Count 4.5 K/mm3 (4.4-11.0)
[2021-04-23 12:29] LABS: ALB/GLOB Ratio 1.2 RATIO (0.9-2.4); AST(SGOT) 25 U/L (15-37); Alanine Aminotransfer ALT/SGPT 44 U/L (16-61); Albumin, Serum 3.9 g/dL (3.2-5.0); Alkaline Phosphatase 70 U/L (45-117); Anion Gap 5 (5-15); BUN 15 mg/dL (7-18); BUN/Creat Ratio 10.8 RATIO (10-20); Calcium,Total 8.5 mg/dL (8.5-10.1); Chloride 106 mmol/L (98-107); Cholesterol 149 mg/dL (200); Creatinine, Serum 1.39 mg/dL (0.70-1.30); EST Glomerular Filtration Rate 55 mL/min (>60); Est Glom Filt Rate - Afr Amer 66 mL/min (>60); Globulin 3.2 g/dL (2.2-4.2); Glucose 98 mg/dL (74-106); High Density Lipoprotein 48 mg/dL; PSA,Total - Annual Screen 1.14 ng/mL (0.00-4.00); Protein, Total 7.1 g/dL (6.4-8.2); Sodium Level 138 mmol/L (136-145); Thyroid Stim Hormone (TSH) 1.69 uIU/mL (0.358-3.74); Triglycerides 74 mg/dL; Very Low Density Lipoprotein 15 mg/dL (5-40)
== END ==
PROVIDERS: PCP Internal Medicine; Referring Provider Nurse Practitioner Family; Visit Provider Nurse Practitioner Family
DX: R73.03 Prediabetes (principal); I12.9 Hypertensive chronic kidney disease with stage 1 through stage 4 chronic kidney disease, or unspecified chronic kidney disease; N18.30 Chronic kidney disease, stage 3 unspecified
CPT/HCPCS: 36415; 80053; 80061; 84153; 84443; 85025; G0103

== ENCOUNTER 2021-10-15 09:03 | Outpatient (CLI) | payer MEDICARE, OTHER, SELFPAY ==
[2021-10-15 12:11] LABS: Absolute Lymphocyte Count 0.88 X10^3/uL (0.83-4.51); Absolute Neutrophil Count 2.8 X10^3/uL (2.0-7.7); Basophil# 0.05 X10^3/uL; Basophil% 1.2 % (0-1); Eosinophil# 0.08 X10^3/uL; Eosinophils% 1.9 % (0-5); Hematocrit 46.4 % (40-54); Hemoglobin 15.2 g/dL (13.0-16.5); Lymphocyte # 0.88 X10^3/ul (0.83-4.51); Lymphocyte % 21.2 % (19-41); Mean Corp Hgb Conc 32.8 g/dL (32-36); Mean Corpuscular Hgb 28.6 pg (27.0-32.0); Mean Corpuscular Volume 87.4 fL (80-94); Mean Platelet Vol. 11.2 fl (6.2-12.0); Monocyte# 0.29 X10^3/uL; NRBC Flagged by Analyzer 0 % (0-5); Neutrophil # 2.84 X10^3/uL (2.7-7.7); Neutrophil % 68.5 % (47-70); Platelet Count 202 K/mm3 (150-450); RBC Distribution Width CV 13.5 % (11.6-14.6); RBC Distribution Width SD 43.1 fl (35.1-43.9); Red Blood Count 5.31 M/mm3 (4.6-6.2); White Blood Count 4.2 K/mm3 (4.4-11.0)
[2021-10-15 12:24] LABS: Anion Gap 3 (5-15); BUN 19 mg/dL (7-18); Calcium,Total 9.2 mg/dL (8.5-10.1); Chloride 109 mmol/L (98-107); Creatinine, Serum 1.46 mg/dL (0.70-1.30); EST Glomerular Filtration Rate 52 mL/min (>60); Est Glom Filt Rate - Afr Amer 62 mL/min (>60); Glucose 119 mg/dL (74-106); Potassium 4.5 mmol/L (3.5-5.1); Sodium Level 141 mmol/L (136-145)
== END 2021-10-15 23:59 | disposition home or self-care (01) ==
LOC: BIMLAB 09:05
PROVIDERS: PCP Internal Medicine; Referring Provider Internal Medicine; Visit Provider Internal Medicine
DX: I10 Essential (primary) hypertension (principal); R73.03 Prediabetes
CPT/HCPCS: 36415; 80048; 85025

== ENCOUNTER → 2022-04-24 | Outpatient (CLI) | payer MEDICARE, OTHER, SELFPAY ==
[2022-04-24 10:58] LABS: ALB/GLOB Ratio 1.1 RATIO (0.9-2.4); AST(SGOT) 26 U/L (15-37); Alanine Aminotransfer ALT/SGPT 40 U/L (16-61); Albumin, Serum 3.7 g/dL (3.2-5.0); Alkaline Phosphatase 64 U/L (45-117); Anion Gap 6 (5-15); BUN 15 mg/dL (7-18); BUN/Creat Ratio 10.7 RATIO (10-20); Calcium,Total 8.7 mg/dL (8.5-10.1); Chloride 107 mmol/L (98-107); Cholesterol 141 mg/dL (200); EST Glomerular Filtration Rate 54 mL/min (>60); Est Glom Filt Rate - Afr Amer 65 mL/min (>60); Globulin 3.4 g/dL (2.2-4.2); Glucose 97 mg/dL (74-106); High Density Lipoprotein 48 mg/dL; PSA,Total- Diagnostic 1.08 ng/mL (0.0-4.0); Potassium 4.3 mmol/L (3.5-5.1); Protein, Total 7.1 g/dL (6.4-8.2); Sodium Level 140 mmol/L (136-145); Triglycerides 70 mg/dL; Very Low Density Lipoprotein 14 mg/dL (5-40)
== END | disposition home or self-care (01) ==
LOC: BIMLAB 08:20
PROVIDERS: PCP Internal Medicine; Referring Provider Internal Medicine; Visit Provider Internal Medicine
DX: E78.5 Hyperlipidemia, unspecified (principal); N40.0 Benign prostatic hyperplasia without lower urinary tract symptoms
CPT/HCPCS: 36415; 80053; 80061; 84153

== ENCOUNTER → 2022-10-30 | Outpatient (CLI) | payer MEDICARE, OTHER, SELFPAY ==
[2022-10-30 12:35] LABS: Anion Gap 7 (5-15); BUN 22 mg/dL (7-18); BUN/Creat Ratio 16.1 RATIO (10-20); Calcium,Total 9.5 mg/dL (8.5-10.1); Chloride 107 mmol/L (98-107); Creatinine, Serum 1.37 mg/dL (0.70-1.30); EST Glomerular Filtration Rate 55 mL/min (>60); Est Glom Filt Rate - Afr Amer 67 mL/min (>60); Glucose 92 mg/dL (74-106); Potassium 4.8 mmol/L (3.5-5.1); Sodium Level 142 mmol/L (136-145)
== END | disposition home or self-care (01) ==
LOC: BIMLAB 10:47
PROVIDERS: PCP Internal Medicine; Referring Provider Internal Medicine; Visit Provider Internal Medicine
DX: I10 Essential (primary) hypertension (principal)
CPT/HCPCS: 36415; 80048

== ENCOUNTER → 2023-05-02 | Outpatient (CLI) | payer MEDICARE, OTHER, SELFPAY ==
[2023-05-02 12:23] LABS: Absolute Neutrophil Count 2.8 X10^3/uL (2.0-7.7); Basophil# 0.05 X10^3/uL; Basophil% 1.2 % (0-1); Eosinophil# 0.09 X10^3/uL; Eosinophils% 2.1 % (0-5); Hematocrit 47.1 % (40-54); Hemoglobin 15.1 g/dL (13.0-16.5); Lymphocyte % 21.5 % (19-41); Mean Corp Hgb Conc 32.1 g/dL (32-36); Mean Corpuscular Hgb 28.5 pg (27.0-32.0); Mean Platelet Vol. 10.7 fl (6.2-12.0); Monocyte# 0.31 X10^3/uL; Monocyte% 7.4 % (0-10); NRBC Flagged by Analyzer 0 % (0-5); Neutrophil # 2.82 X10^3/uL (2.7-7.7); Neutrophil % 67.3 % (47-70); Platelet Count 223 K/mm3 (150-450); RBC Distribution Width CV 13.5 % (11.6-14.6); RBC Distribution Width SD 43.8 fl (35.1-43.9); Red Blood Count 5.29 M/mm3 (4.6-6.2); White Blood Count 4.2 K/mm3 (4.4-11.0)
[2023-05-02 13:15] LABS: ALB/GLOB Ratio 1.1 RATIO (0.9-2.4); AST(SGOT) 25 U/L (15-37); Alanine Aminotransfer ALT/SGPT 35 U/L (16-61); Albumin, Serum 3.9 g/dL (3.2-5.0); Alkaline Phosphatase 65 U/L (45-117); Anion Gap 7 (5-15); BUN 16 mg/dL (7-18); Chloride 109 mmol/L (98-107); Cholesterol 160 mg/dL (200); Creatinine, Serum 1.33 mg/dL (0.70-1.30); EST Glomerular Filtration Rate 57 mL/min (>60); Est Glom Filt Rate - Afr Amer 69 mL/min (>60); Globulin 3.4 g/dL (2.2-4.2); Glucose 104 mg/dL (74-106); High Density Lipoprotein 52 mg/dL; PSA,Total - Annual Screen 2.65 ng/mL (0.00-4.00); Potassium 4.5 mmol/L (3.5-5.1); Protein, Total 7.3 g/dL (6.4-8.2); Sodium Level 140 mmol/L (136-145); Triglycerides 70 mg/dL; Very Low Density Lipoprotein 14 mg/dL (5-40)
== END | disposition home or self-care (01) ==
LOC: BIMLAB 09:28
PROVIDERS: PCP Internal Medicine; Referring Provider Internal Medicine; Visit Provider Internal Medicine
DX: E78.5 Hyperlipidemia, unspecified (principal); N40.0 Benign prostatic hyperplasia without lower urinary tract symptoms; Z12.5 Encounter for screening for malignant neoplasm of prostate
CPT/HCPCS: 36415; 80053; 80061; 84153; 85025; G0103

== ENCOUNTER → 2023-11-07 | Outpatient (CLI) | payer MEDICARE, OTHER, SELFPAY ==
--- OUTSIDE RECORDS SUMMARY | 2023-11-07 08:48 | XMS RPT_ITS | CCD ---
Author Name Unknown Address [address] [place] [address] Organization [facility] Results Test Name Value Interpretation Reference Range Facil ity Summary Purpose Family History No Family History Records FoundNo Family History Records FoundNo Family History Records Found Advance Directives No Advanced Directives Records FoundNo Advanced Directives Records FoundNo Advanced Directives Records Found Additional Source Comments (unrecognized sect ion and content) No Status Records FoundNo Status Records FoundNo Status Records Found INFORMATION SOURCE (unrecogn ized section and content) DATE CREATED AUTHOR AUTHOR'S ORGANIZ ATION 12/15/2019 [facility] DATE CREATED AUTHOR AUTHOR'S ORGANIZ ATION 01/12/2020 [facility] FOR RECORDS PERTAINING TO PATIENTS WHO ARE OR HAVE BEEN ENROLLED IN A CHEMICAL DEPENDENCY/SUBSTANCEABUSE PROGRAM, SOME INFORMATION MAY BE OMITTED. This clinical summary was aggregated from multiple sources. Caution should be exercised in using it in the provision of clinical care. This summary normalizes information from multiple sources, and as a consequence, information in this document may materially change the coding, format and clinical context of patient data. In addition, data may be omitted in some cases. CLINICAL DECISIONS SHOULD BE BASED ON THE PRIMARY CLINICAL RECORDS. [employer] [facility]. provides no warranty or guarantee of the accuracy or completeness of information in this document.
[2023-11-07 12:18] LABS: Anion Gap 4 (5-15); BUN 15 mg/dL (7-18); BUN/Creat Ratio 11.5 RATIO (10-20); Calcium,Total 9.1 mg/dL (8.5-10.1); Chloride 110 mmol/L (98-107); Creatinine, Serum 1.31 mg/dL (0.70-1.30); EST Glomerular Filtration Rate 58 mL/min (>60); Est Glom Filt Rate - Afr Amer 70 mL/min (>60); Glucose 110 mg/dL (74-106); Potassium 4.4 mmol/L (3.5-5.1); Sodium Level 140 mmol/L (136-145)
[2023-11-07 13:09] LABS: Hemoglobin A1c 5.9 % (3.8-5.6)
== END | disposition home or self-care (01) ==
PROVIDERS: PCP Internal Medicine; Visit Provider Internal Medicine
DX: I12.9 Hypertensive chronic kidney disease with stage 1 through stage 4 chronic kidney disease, or unspecified chronic kidney disease (principal); N18.30 Chronic kidney disease, stage 3 unspecified; R73.03 Prediabetes
CPT/HCPCS: 36415; 80048; 83036

== ENCOUNTER → 2024-05-19 | Outpatient (CLI) | payer MEDICARE, OTHER, SELFPAY ==
[2024-05-19 12:13] LABS: Absolute Lymphocyte Count 0.96 X10^3/uL (0.83-4.51); Absolute Neutrophil Count 3.1 X10^3/uL (2.0-7.7); Basophil# 0.03 X10^3/uL; Basophil% 0.7 % (0-1); Eosinophil# 0.07 X10^3/uL; Eosinophils% 1.5 % (0-5); Hematocrit 48.7 % (40-54); Hemoglobin 15.8 g/dL (13.0-16.5); Lymphocyte # 0.96 X10^3/ul (0.83-4.51); Lymphocyte % 21.1 % (19-41); Mean Corp Hgb Conc 32.4 g/dL (32-36); Mean Corpuscular Hgb 27.9 pg (27.0-32.0); Mean Platelet Vol. 10.6 fl (6.2-12.0); Monocyte# 0.33 X10^3/uL; Monocyte% 7.3 % (0-10); NRBC Flagged by Analyzer 0 % (0-5); Neutrophil # 3.11 X10^3/uL (2.7-7.7); Neutrophil % 68.5 % (47-70); Platelet Count 229 K/mm3 (150-450); RBC Distribution Width CV 13.8 % (11.6-14.6); RBC Distribution Width SD 43.5 fl (35.1-43.9); Red Blood Count 5.66 M/mm3 (4.6-6.2); White Blood Count 4.5 K/mm3 (4.4-11.0)
[2024-05-19 12:40] LABS: ALB/GLOB Ratio 1.1 RATIO (0.9-2.4); AST(SGOT) 24 U/L (15-37); Alanine Aminotransfer ALT/SGPT 30 U/L (16-61); Albumin, Serum 3.9 g/dL (3.2-5.0); Alkaline Phosphatase 60 U/L (45-117); Anion Gap 4 (5-15); BUN 19 mg/dL (7-18); BUN/Creat Ratio 13.3 RATIO (10-20); Calcium,Total 9.3 mg/dL (8.5-10.1); Chloride 106 mmol/L (98-107); Cholesterol 267 mg/dL (200); Creatinine, Serum 1.43 mg/dL (0.70-1.30); EST Glomerular Filtration Rate 52 mL/min (>60); Est Glom Filt Rate - Afr Amer 63 mL/min (>60); Globulin 3.4 g/dL (2.2-4.2); Glucose 107 mg/dL (74-106); High Density Lipoprotein 55 mg/dL; PSA,Total - Annual Screen 1.36 ng/mL (0.00-4.00); Potassium 4.7 mmol/L (3.5-5.1); Protein, Total 7.3 g/dL (6.4-8.2); Sodium Level 138 mmol/L (136-145); Triglycerides 101 mg/dL; Very Low Density Lipoprotein 20 mg/dL (5-40)
== END | disposition home or self-care (01) ==
LOC: BIMLAB 08:39
PROVIDERS: PCP Internal Medicine; Referring Provider Internal Medicine; Visit Provider Internal Medicine
DX: I10 Essential (primary) hypertension (principal); E78.5 Hyperlipidemia, unspecified; Z12.5 Encounter for screening for malignant neoplasm of prostate
CPT/HCPCS: 36415; 80053; 80061; 84153; 85025; G0103

== ENCOUNTER → 2024-11-05 | Outpatient (CLI) | payer MEDICARE, OTHER, SELFPAY ==
[2024-11-05 12:47] LABS: Hemoglobin A1c 6.2 % (<=5.6)
[2024-11-05 12:52] LABS: ALB/GLOB Ratio 1.6 RATIO (0.9-2.4); AST(SGOT) 28 U/L (<=37); Alanine Aminotransfer ALT/SGPT 29 U/L (<=46); Albumin, Serum 4.4 g/dL (3.4-4.8); Alkaline Phosphatase 61 U/L (40-129); Anion Gap 12 (5-15); BUN 17 mg/dL (4-19); BUN/Creat Ratio 12.1 RATIO (10-20); Calcium,Total 9.3 mg/dL (7.6-11.0); Carbon Dioxide 23.4 mmol/L (21.0-32.0); Chloride 104 mmol/L (98-108); Creatinine, Serum 1.39 mg/dL (0.70-1.20); EST Glomerular Filtration Rate 55 (>60); Globulin 2.7 g/dL (2.2-4.2); Glucose 106 mg/dL (70-99); Potassium 4.4 mmol/L (3.3-5.1); Protein, Total 7.1 g/dL (5.9-8.4); Sodium Level 140 mmol/L (133-145); Total Bilirubin 0.75 mg/dL (0.00-1.30)
[2024-11-05 14:00] LABS: Cholesterol 159 mg/dL (<=200); High Density Lipoprotein 55 mg/dL; Low Density Lipoprotein Calc. 88 mg/dL; Triglycerides 81 mg/dL; Very Low Density Lipoprotein 16 mg/dL (5-40); cholesterol:hdl ratio screen 2.92
== END | disposition home or self-care (01) ==
LOC: BIMLAB 08:18
PROVIDERS: PCP Internal Medicine; Referring Provider Internal Medicine; Visit Provider Internal Medicine
DX: I10 Essential (primary) hypertension (principal); E78.5 Hyperlipidemia, unspecified; R73.03 Prediabetes
CPT/HCPCS: 36415; 80053; 80061; 83036

== ENCOUNTER → 2025-08-10 | Outpatient (CLI) | payer MEDICARE, OTHER, SELFPAY ==
[2025-08-10 10:22] LABS: Hematocrit 47.4 % (40-54); Hemoglobin 15.1 g/dL (13.0-16.5); Immature Granulocytes Count 0.000 X10^3/uL (0.0-0.0); Mean Corp Hgb Conc 31.9 g/dL (32-36); Mean Corpuscular Volume 86.8 fL (80-94); Mean Platelet Vol. 10.0 fl (6.2-12.0); NRBC Flagged by Analyzer 0 % (0-5); Platelet Count 190 K/mm3 (150-450); RBC Distribution Width CV 13.6 % (11.6-14.6); RBC Distribution Width SD 43.1 fl (35.1-43.9); Red Blood Count 5.46 M/mm3 (4.6-6.2); White Blood Count 4.9 K/mm3 (4.4-11.0)
[2025-08-10 10:47] LABS: AST(SGOT) 29 U/L (<=37); Alanine Aminotransfer ALT/SGPT 30 U/L (<=46); Albumin, Serum 4.2 g/dL (3.4-4.8); Alkaline Phosphatase 51 U/L (40-129); Anion Gap 10 (5-15); BUN 18 mg/dL (4-19); BUN/Creat Ratio 13.1 RATIO (10-20); Calcium,Total 9.4 mg/dL (7.6-11.0); Carbon Dioxide 27.2 mmol/L (21.0-32.0); Chloride 106 mmol/L (98-108); Cholesterol 159 mg/dL (<=200); Globulin 2.5 g/dL (2.2-4.2); Glucose 98 mg/dL (70-99); Low Density Lipoprotein Calc. 92 mg/dL; PSA,Total - Annual Screen 1.22 ng/mL (0.02-4.00); Potassium 4.1 mmol/L (3.3-5.1); Triglycerides 89 mg/dL; Very Low Density Lipoprotein 18 mg/dL (5-40); cholesterol:hdl ratio screen 3.18
== END | disposition home or self-care (01) ==
LOC: MTLAB 08:47
PROVIDERS: PCP Internal Medicine; Referring Provider Internal Medicine; Visit Provider Internal Medicine
DX: Z12.5 Encounter for screening for malignant neoplasm of prostate (principal); I10 Essential (primary) hypertension
CPT/HCPCS: 36415; 80053; 80061; 84153; 85025; G0103